=== PATIENT | female | born 1990 | race Caucasian/White ===

== ENCOUNTER 2017-08-12 11:21 | Emergency (ER) | payer OTHER ==
--- NOTE | 2017-08-12 11:46 | ED ---
General Adult HPI - General Chief complaint: Anxiety Stated complaint: Anxiety Time Seen by Provider: 08/12/17 11:31 Source: patient, RN notes reviewed, old records reviewed Mode of arrival: ambulatory Limitations: no limitations - History of Present Illness Initial comments: THis is a 27 female to the ED Co anxiety. Patient has history of anxiety history of PTSD history of psychiatric disease since young age. Patient has had some recent stress of late, including moving to [place], and some illness with her boyfriend. Patient states she has no doctors in town and has been off medication for about a week. Patient denies any other new complaints. States she is having increased anxiety and needs medication for help - Related Data Home Medications Medication Instructions Recorded Confirmed ALPRAZolam [Xanax] 1 mg PO Q6H 08/12/17 08/12/17 Norgestimate-Ethinyl Estradiol 1 tab PO DAILY 08/12/17 08/12/17 [Trinessa Tablet] Sertraline [Zoloft] 50 mg PO BID 08/12/17 08/12/17 Allergies Allergy/AdvReac Type Severity Reaction Status Date / Time fenofibrate Allergy Anaphylaxis Verified 08/12/17 11:35 Review of Systems ROS Statement: Those systems with pertinent positive or pertinent negative responses have been documented in the HPI. ROS Other: All systems not noted in ROS Statement are negative. Past Medical History Additional Past Medical History / Comment(s): kidney stones, ovarian cysts, insulin disorder, crohns History of Any Multi-Drug Resistant Organisms: None Reported Past Surgical History: Cholecystectomy Past Psychological History: Anxiety, Bipolar, PTSD Smoking Status: Current every day smoker Past Alcohol Use History: None Reported Past Drug Use History: Marijuana General Exam Limitations: no limitations General appearance: alert, in no apparent distress Head exam: Present: atraumatic, normocephalic, normal inspection Eye exam: Present: normal appearance, PERRL, EOMI. Absent: scleral icterus, conjunctival injection, periorbital swelling ENT exam: Present: normal exam, mucous membranes moist Neck exam: Present: normal inspection. Absent: tenderness, meningismus, lymphadenopathy Respiratory exam: Present: normal lung sounds bilaterally. Absent: respiratory distress, wheezes, rales, rhonchi, stridor Cardiovascular Exam: Present: regular rate, normal rhythm, normal heart sounds. Absent: systolic murmur, diastolic murmur, rubs, gallop, clicks GI/Abdominal exam: Present: soft, normal bowel sounds. Absent: distended, tenderness, guarding, rebound, rigid Extremities exam: Present: normal inspection, full ROM, normal capillary refill. Absent: tenderness, pedal edema, joint swelling, calf tenderness Back exam: Present: normal inspection Neurological exam: Present: alert, oriented X3, CN II-XII intact Psychiatric exam: Present: normal affect, normal mood Skin exam: Present: warm, dry, intact, normal color. Absent: rash Course Vital Signs 08/12/17 11:24 Temperature 98.9 F Pulse Rate 103 H Respiratory 18 Rate Blood Pressure 171/93 O2 Sat by Pulse 98 Oximetry Medical Decision Making - Medical Decision Making noted here for evaluation. Patient presented today for medication refill , increased anxiety. Patient's is new to [facility] with no psychiatrist in town. Patient states she's been off her medications for about 7 days. No signs or thoughts of harm to herself or others. Patient to get a medication refill and discharged home Disposition Clinical Impression: Acute anxiety Disposition: HOME SELF-CARE Instructions: Generalized Anxiety Disorder (ED) Referrals: Tanesha Pruitt DO [Doctor of Osteopathic Medicine] - 1-2 days Ace Stanford DO [Doctor of Osteopathic Medicine] - 1-2 days
[2017-08-12 11:57] VITALS: BP 137/89; PULSE 96; RESP 16; TEMP 97.7
== END 2017-08-12 11:57 | disposition home or self-care (01) ==
LOC: EC 11:21
DX: F41.9 Anxiety disorder, unspecified (principal); F31.9 Bipolar disorder, unspecified; F43.10 Post-traumatic stress disorder, unspecified; F17.200 Nicotine dependence, unspecified, uncomplicated; Z79.899 Other long term (current) drug therapy; Z79.3 Long term (current) use of hormonal contraceptives; Z88.8 Allergy status to other drugs, medicaments and biological substances
CPT/HCPCS: 99283

== ENCOUNTER 2017-11-30 09:35 | Emergency (ER) | payer OTHER ==
[2017-11-30] MEDS ORDERED: ACETAMINOPHEN TAB 500 MG TAB PO STA (09:55)
--- NOTE | 2017-11-30 10:03 | ED ---
Recheck HPI - General Chief Complaint: Recheck/Abnormal Lab/Rx Stated Complaint: not feeling well Time Seen by Provider: 11/30/17 09:43 Source: patient, RN notes reviewed, old records reviewed Mode of arrival: ambulatory Limitations: no limitations - History of Present Illness Initial Comments: This patient is a 27 rolled female presents emergency department today chief complaint of fever, body aches, and unable to get her daily dose of methadone for the past 2 days due to her illness. She reports that she also confirmed an early and had 2 positive test yesterday. Patient states that she was told to come to emergency department for her dose of methadone and should the clinic is now closed. She reports that she has not had any recent Motrin or Tylenol. She reports she's had a sore throat and congestion. She denies any specific lower abdominal pain or cramping. Denies any bleeding. - Related Data Home Medications Medication Instructions Recorded Confirmed ALPRAZolam [Xanax] 0.5 mg PO TID 11/30/17 11/30/17 Methadone (Unknown Dose) 1 dose PO DIRECTED 11/30/17 11/30/17 Ondansetron [Zofran ODT] 4 mg PO Q8HR PRN 11/30/17 11/30/17 Previous Rx's Medication Instructions Recorded Amoxicillin 500 mg PO BID #20 capsule 11/30/17 Ywp-Eoks-Hdqby Acid 1 cap PO DAILY #30 cap 11/30/17 [-U Capsule (formulary)] Allergies Allergy/AdvReac Type Severity Reaction Status Date / Time fenofibrate Allergy Anaphylaxis Verified 11/30/17 11:47 Review of Systems ROS Statement: Those systems with pertinent positive or pertinent negative responses have been documented in the HPI. ROS Other: All systems not noted in ROS Statement are negative. Past Medical History Additional Past Medical History / Comment(s): kidney stones, ovarian cysts, insulin disorder, crohns History of Any Multi-Drug Resistant Organisms: None Reported Past Surgical History: Cholecystectomy Past Psychological History: Anxiety, Bipolar, PTSD Smoking Status: Current every day smoker Past Alcohol Use History: None Reported Past Drug Use History: Marijuana General Exam - General Exam Comments Initial Comments: This patient is a 27-year-old female. No distress. Limitations: no limitations General appearance: alert, in no apparent distress Head exam: Present: atraumatic, normocephalic, normal inspection Eye exam: Present: normal appearance, PERRL, EOMI. Absent: scleral icterus, conjunctival injection, periorbital swelling ENT exam: Present: normal exam, mucous membranes moist. Absent: normal oropharynx (Erythematous oropharynx.) Neck exam: Present: normal inspection. Absent: tenderness, meningismus, lymphadenopathy Respiratory exam: Present: normal lung sounds bilaterally. Absent: respiratory distress, wheezes, rales, rhonchi, stridor Cardiovascular Exam: Present: regular rate, normal rhythm, normal heart sounds. Absent: systolic murmur, diastolic murmur, rubs, gallop, clicks GI/Abdominal exam: Present: soft, normal bowel sounds. Absent: distended, tenderness, guarding, rebound, rigid Neurological exam: Present: alert, oriented X3, CN II-XII intact Psychiatric exam: Present: normal affect, normal mood Skin exam: Present: warm, dry, intact, normal color. Absent: rash Course Vital Signs 11/30/17 11/30/17 11/30/17 09:38 11:16 11:55 Temperature 101.1 F H 97.8 F 97.1 F L Pulse Rate 95 77 79 Respiratory 18 20 18 Rate Blood Pressure 131/63 114/68 121/58 O2 Sat by Pulse 100 99 97 Oximetry Medical Decision Making - Medical Decision Making This patient is a 27 rolled female presents emergency department today chief complaint of fever, body aches, and unable to get her daily dose of methadone for the past 2 days due to her illness. She reports that she also confirmed an early and had 2 positive test yesterday. Patient arrives febrile the temperature of 101. Given Tylenol. On the testing was negative. She does have an erythematous oropharynx. Some lymphadenopathy noted. She did have a positive test and Saren hCG obtained. Patient was informed she cannot to get a dose of methadone in the emergency department. I just got she should follow up with the clinic on Saturday.All questions were answered in return parameter were discussed. Patient will be started on amoxicillin for likely strep pharyngitis. - Lab Data Lab Results 11/30/17 11/30/17 11/30/17 Range/Units 09:55 09:55 09:55 HCG, Quant mIU/mL Urine Color Yellow Urine Appearance Cloudy H (Clear) Urine pH 5.5 (5.0-8.0) Ur Specific [place] 1.017 (1.001-1.035) Urine Protein Trace H (Negative) Urine Glucose (UA) Negative (Negative) Urine Ketones Negative (Negative) Urine Blood Negative (Negative) Urine Nitrite Negative (Negative) Urine Bilirubin Negative (Negative) Urine Urobilinogen <2.0 (<2.0) mg/dL Ur Leukocyte Esterase Moderate H (Negative) Urine RBC 2 (0-5) /hpf Urine WBC 6 H (0-5) /hpf Ur Squamous Epith Cells 11 H (0-4) /hpf Urine Bacteria Rare H (None) /hpf Urine Mucus Moderate H (None) /hpf Urine HCG, Qual Detected (Not Detectd) Influenza Type A RNA Not Detected (Not Detectd) Influenza Type B (PCR) Not Detected (Not Detectd) 11/30/17 Range/Units 10:10 HCG, Quant 5083.3 mIU/mL Urine Color Urine Appearance (Clear) Urine pH (5.0-8.0) Ur Specific [place] (1.001-1.035) Urine Protein (Negative) Urine Glucose (UA) (Negative) Urine Ketones (Negative) Urine Blood (Negative) Urine Nitrite (Negative) Urine Bilirubin (Negative) Urine Urobilinogen (<2.0) mg/dL Ur Leukocyte Esterase (Negative) Urine RBC (0-5) /hpf Urine WBC (0-5) /hpf Ur Squamous Epith Cells (0-4) /hpf Urine Bacteria (None) /hpf Urine Mucus (None) /hpf Urine HCG, Qual (Not Detectd) Influenza Type A RNA (Not Detectd) Influenza Type B (PCR) (Not Detectd) Disposition Clinical Impression: URI (upper respiratory infection), , Methadone dependence Disposition: HOME SELF-CARE Condition: Good Instructions: (ED), Upper Respiratory Infection (ED) Additional Instructions: Patient has a follow-up with primary care physician. Return to the emergency department if any alarming signs or symptoms occur. Prescriptions: Amoxicillin 500 mg PO BID #20 capsule Bvf-Bmoz-Rnmfq Acid [-U Capsule (formulary)] 1 cap PO DAILY # 30 cap Referrals: Hai Horta DO [Primary Care Provider] - 1-2 days Birdie Ray DO [Doctor of Osteopathic Medicine] - 1-2 days Time of Disposition: 11:46
[2017-11-30 10:32] LABS: Appearance,Urine Cloudy (Clear); Bacteria,Urine Rare /hpf; Bilirubin,Urine Negative (Negative); Blood,Urine Negative (Negative); Color,Urine Yellow; Glucose,Urine (UA) Negative (Negative); Ketones,Urine Negative (Negative); Leukocyte Esterase,Urine Moderate (Negative); Mucus,Urine Moderate /hpf; Nitrite,Urine Negative (Negative); PH, Urine 5.5 (5.0-8.0); Protein,Urine Trace (Negative); RBC,Urine 2 /hpf (0-5); Specific Gravity,Urine 1.017 (1.001-1.035); Squamous Epithelial Cell,Urine 11 /hpf (0-4); Urobilinogen,Urine <2.0 mg/dL (<2.0); WBC,Urine 6 /hpf (0-5)
[2017-11-30 11:57] VITALS: BP 121/58; PULSE 79; RESP 18; TEMP 97.1
== END 2017-11-30 11:56 | disposition home or self-care (01) ==
LOC: EC 09:35
DX: O99.519 Diseases of the respiratory system complicating pregnancy, unspecified trimester (principal); J06.9 Acute upper respiratory infection, unspecified; O99.320 Drug use complicating pregnancy, unspecified trimester; F11.20 Opioid dependence, uncomplicated; O99.330 Smoking (tobacco) complicating pregnancy, unspecified trimester; F17.200 Nicotine dependence, unspecified, uncomplicated; Z79.3 Long term (current) use of hormonal contraceptives; Z88.8 Allergy status to other drugs, medicaments and biological substances; Z3A.00 Weeks of gestation of pregnancy not specified
CPT/HCPCS: 36415; 81001; 81025; 84702; 87502; 99284

== ENCOUNTER 2018-03-11 13:31 | Emergency (ER) | payer OTHER ==
[2018-03-11 14:09] LABS: Basophils # (A) 0.1 k/uL (0-0.2); Basophils % (A) 1 %; Eosinophils # (A) 0.4 k/uL (0-0.7); Eosinophils % (A) 4 %; HCT 38.1 % (34.0-46.0); HGB 13.1 gm/dL (11.4-16.0); Lymphocytes # (A) 3.1 k/uL (1.0-4.8); Lymphocytes % (A) 29 %; MCH 30.2 pg (25.0-35.0); MCHC 34.3 g/dL (31.0-37.0); MCV 88.1 fL (80.0-100.0); Mean Platelet Volume 7.3; Monocytes # (A) 0.4 k/uL (0-1.0); Monocytes % (A) 4 %; Neutrophils # (A) 6.3 k/uL (1.3-7.7); Neutrophils % (A) 60 %; Platelet Count 218 k/uL (150-450); RBC 4.32 m/uL (3.80-5.40); WBC 10.5 k/uL (3.8-10.6)
[2018-03-11 14:16] LABS: Anion Gap 11 mmol/L; Blood Urea Nitrogen 8 mg/dL (7-17); Calcium 9.1 mg/dL (8.4-10.2); Carbon Dioxide 25 mmol/L (22-30); Chloride 104 mmol/L (98-107); Glucose 91 mg/dL (74-99); Potassium 3.9 mmol/L (3.5-5.1); Sodium 140 mmol/L (137-145)
--- NOTE | 2018-03-11 14:27 | ED ---
Female Urogenital HPI - General Chief complaint: Vaginal Bleeding Stated complaint: 19 wks preg/bleeding Time Seen by Provider: 03/11/18 13:43 Source: patient Mode of arrival: wheelchair Limitations: no limitations - History of Present Illness Initial comments: Patient is a 27-year-old female, who presents with a chief complaint of vaginal bleeding at 19 weeks . The patient states that while at home she felt a mass in her vagina and when she touched that she had a release of fluid. Patient states that she is now having vaginal bleeding. Patient denies any pain at this time. The patient cannot identify an inciting incident. There are no aggravating or alleviating factors. Patient is crying and in moderate distress in exam room. Patient states that her last was an elective . No other pertinent OB history. - Related Data Home Medications Medication Instructions Recorded Confirmed Methadone (Unknown Dose) 1 dose PO DIRECTED 11/30/17 11/30/17 ALPRAZolam [Xanax] 0.5 - 1 mg PO TID PRN 03/11/18 03/11/18 Lac-Hydrin 12% (Unknown) 1 applic TOPICAL BID 03/11/18 03/11/18 Mylanta Maxium Strength 10 ml PO QID PRN 03/11/18 03/11/18 Promethazine HCl 12.5 mg PO Q4H PRN 03/11/18 03/11/18 Previous Rx's Medication Instructions Recorded Oyr-Wgsa-Ourep Acid 1 cap PO DAILY #30 cap 11/30/17 [-U Capsule (formulary)] Allergies Allergy/AdvReac Type Severity Reaction Status Date / Time fenofibrate Allergy Anaphylaxis Verified 03/11/18 13:47 Review of Systems ROS Statement: Those systems with pertinent positive or pertinent negative responses have been documented in the HPI. ROS Other: All systems not noted in ROS Statement are negative. Genitourinary: Reports: other (Vaginal bleeding) Past Medical History Additional Past Medical History / Comment(s): kidney stones, ovarian cysts, insulin disorder, crohns History of Any Multi-Drug Resistant Organisms: None Reported Past Surgical History: Cholecystectomy Additional Past Surgical History / Comment(s): abotion Past Psychological History: Anxiety, Bipolar, PTSD Smoking Status: Current every day smoker Past Alcohol Use History: None Reported Past Drug Use History: Marijuana General Exam Limitations: no limitations General appearance: alert, in distress Head exam: Present: atraumatic, normocephalic Eye exam: Present: normal appearance ENT exam: Present: mucous membranes moist Neck exam: Present: normal inspection Respiratory exam: Present: normal lung sounds bilaterally. Absent: respiratory distress, wheezes Cardiovascular Exam: Present: normal rhythm, tachycardia GI/Abdominal exam: Present: soft. Absent: distended, tenderness Rectal exam: Present: deferred External exam: Present: normal external exam Speculum exam: Present: cervical discharge, vaginal bleeding, tissue (tissue within the vagina extending into the cervix. tissue appears vascularized and is concerning for tissue. ). Absent: vaginal discharge Extremities exam: Present: normal inspection Back exam: Present: normal inspection Neurological exam: Present: alert, oriented X3 Psychiatric exam: Present: anxious Skin exam: Present: warm, dry, intact Course Vital Signs 03/11/18 03/11/18 13:31 14:00 Temperature 99.0 F Pulse Rate 103 H 85 Respiratory 22 16 Rate Blood Pressure 149/96 113/64 O2 Sat by Pulse 98 99 Oximetry Medical Decision Making - Medical Decision Making Patient is a 27-year-old female presents with the chief complaint of vaginal bleeding and passage of tissue. On initial evaluation, vital signs are stable the patient is in distress secondary to fear of losing her . Bedside ultrasound shows an intrauterine fetus with a bedside heart rate of 140 bpm. Patient currently having formal ultrasound performed. Pelvic exam shows blood and tissue in the vaginal vault extending to the cervix, tissue concerning for tissue. 3:36 PM Lab evaluation is unremarkable. Patient is Rho (-) and was given 300 micrograms of RhoGam. This case was discussed with Dr. Patten of [facility] who recommends transfer to the OB floor. Dr. Patten states she will write further management orders for the patient. the patient was updated on the care plan and her results. formal US shows a single intrauterine, viable dated at 18 weeks and 6 days. oligohydramnios noted, consistent with patients history. at this time, patient agreeable with care plan. Patient discharge from the ED to [facility]. - Lab Data Result diagrams: 03/11/18 13:47 03/11/18 13:47 Lab Results 03/11/18 03/11/18 03/11/18 Range/Units 13:47 13:47 13:47 WBC 10.5 (3.8-10.6) k/uL RBC 4.32 (3.80-5.40) m/uL Hgb 13.1 (11.4-16.0) gm/dL Hct 38.1 (34.0-46.0) % MCV 88.1 (80.0-100.0) fL MCH 30.2 (25.0-35.0) pg MCHC 34.3 (31.0-37.0) g/dL RDW 13.0 (11.5-15.5) % Plt Count 218 (150-450) k/uL Neutrophils % 60 % Lymphocytes % 29 % Monocytes % 4 % Eosinophils % 4 % Basophils % 1 % Neutrophils # 6.3 (1.3-7.7) k/uL Lymphocytes # 3.1 (1.0-4.8) k/uL Monocytes # 0.4 (0-1.0) k/uL Eosinophils # 0.4 (0-0.7) k/uL Basophils # 0.1 (0-0.2) k/uL Sodium 140 (137-145) mmol/L Potassium 3.9 (3.5-5.1) mmol/L Chloride 104 (98-107) mmol/L Carbon Dioxide 25 (22-30) mmol/L Anion Gap 11 mmol/L BUN 8 (7-17) mg/dL Creatinine 0.50 L (0.52-1.04) mg/dL Est GFR (CKD-EPI)AfAm >90 (>60 ml/min/1.73 sqM) Est GFR (CKD-EPI)NonAf >90 (>60 ml/min/1.73 sqM) Glucose 91 (74-99) mg/dL Calcium 9.1 (8.4-10.2) mg/dL Urine Color Urine Appearance (Clear) Urine pH (5.0-8.0) Ur Specific [place] (1.001-1.035) Urine Protein (Negative) Urine Glucose (UA) (Negative) Urine Ketones (Negative) Urine Blood (Negative) Urine Nitrite (Negative) Urine Bilirubin (Negative) Urine Urobilinogen (<2.0) mg/dL Ur Leukocyte Esterase (Negative) Urine RBC (0-5) /hpf Urine WBC (0-5) /hpf Ur Squamous Epith Cells (0-4) /hpf Amorphous Sediment (None) /hpf Urine Bacteria (None) /hpf Urine Mucus (None) /hpf Blood Type O Negative Blood Type Recheck No Antibody Screen NEGATIVE Spec Expiration Date 03/14/2018234603/11/18 Range/Units 15:05 WBC (3.8-10.6) k/uL RBC (3.80-5.40) m/uL Hgb (11.4-16.0) gm/dL Hct (34.0-46.0) % MCV (80.0-100.0) fL MCH (25.0-35.0) pg MCHC (31.0-37.0) g/dL RDW (11.5-15.5) % Plt Count (150-450) k/uL Neutrophils % % Lymphocytes % % Monocytes % % Eosinophils % % Basophils % % Neutrophils # (1.3-7.7) k/uL Lymphocytes # (1.0-4.8) k/uL Monocytes # (0-1.0) k/uL Eosinophils # (0-0.7) k/uL Basophils # (0-0.2) k/uL Sodium (137-145) mmol/L Potassium (3.5-5.1) mmol/L Chloride (98-107) mmol/L Carbon Dioxide (22-30) mmol/L Anion Gap mmol/L BUN (7-17) mg/dL Creatinine (0.52-1.04) mg/dL Est GFR (CKD-EPI)AfAm (>60 ml/min/1.73 sqM) Est GFR (CKD-EPI)NonAf (>60 ml/min/1.73 sqM) Glucose (74-99) mg/dL Calcium (8.4-10.2) mg/dL Urine Color Yellow Urine Appearance Cloudy H (Clear) Urine pH 7.5 (5.0-8.0) Ur Specific [place] 1.019 (1.001-1.035) Urine Protein Trace H (Negative) Urine Glucose (UA) Negative (Negative) Urine Ketones Negative (Negative) Urine Blood Large H (Negative) Urine Nitrite Negative (Negative) Urine Bilirubin Negative (Negative) Urine Urobilinogen <2.0 (<2.0) mg/dL Ur Leukocyte Esterase Moderate H (Negative) Urine RBC >182 H (0-5) /hpf Urine WBC 22 H (0-5) /hpf Ur Squamous Epith Cells 2 (0-4) /hpf Amorphous Sediment Rare H (None) /hpf Urine Bacteria Few H (None) /hpf Urine Mucus Rare H (None) /hpf Blood Type Blood Type Recheck Antibody Screen Spec Expiration Date Disposition Clinical Impression: Oligohydramnios, PROM (premature rupture of membranes) Disposition: HOME SELF-CARE Condition: Good Instructions: Threatened Miscarriage (ED) Is patient prescribed a controlled substance at d/c from ED?: No Referrals: Hai Horta DO [Primary Care Provider] - 1-2 days
--- NOTE | 2018-03-11 14:45 | US ---
EXAMINATION TYPE: US OB >= 14 wk fetus DATE OF EXAM: 03/11/2018 COMPARISON: None CLINICAL HISTORY: Pain Patient states she felt a bulge then a pop with leaky clear fluid. No pain o r cramping. Patient states passing a tissue. TECHNIQUE: Transvaginal (TV) GESTATIONAL AGE / DATING Physician Established: (19 weeks/3 days) EDC: 08/02/2018 Dates by Current Scan: (18 weeks/6 days) EDC: 08/06/2018 SURVEY IUP: Single PLACENTA: Anterior PREVIA: No Previa HADLEY: 1.9 cm Oligohydramnios CERVICAL LENGTH (transabdominal: norm > 3.0cm): 3.7 cm BIOMETRY PRESENTATION: Breech LIE: Longitudinal BPD: 4.1 cm 18 weeks / 2 days HC: 16.3 cm 19 weeks / 0 days AC: 13.6 cm 19 weeks / 0 days FL: 3.1 cm 19 weeks / 4 days ESTIMATED WEIGHT IN GRAMS: 283.0 grams ESTIMATED WEIGHT IN LBS/OZ: 0 lbs. 10 oz. WEIGHT PERCENTAGE BASED ON ESTABLISHED DATES: 36.0% HC/AC: 1.2 Normal FL/AC: 22.8 HEART RATE: 137 bpm RHYTHM: Normal Single live IUP measuring 18 weeks 6 days. Oligohydramnios. IMPRESSION: Single viable intrauterine patency corresponding to ultrasound age 18 weeks 6 days with estimated lizzy e of delivery 08/06/2018. Oligohydramnios. Limited survey.
[2018-03-11] MEDS ORDERED: Rhogam IMMUNE GLOBULIN 1,500 UNIT/1 ML IM ONE (15:17)
[2018-03-11 15:32] LABS: Amorphous Sediment,Urine Rare /hpf; Appearance,Urine Cloudy (Clear); Bacteria,Urine Few /hpf; Bilirubin,Urine Negative (Negative); Blood,Urine Large (Negative); Color,Urine Yellow; Glucose,Urine (UA) Negative (Negative); Ketones,Urine Negative (Negative); Leukocyte Esterase,Urine Moderate (Negative); Mucus,Urine Rare /hpf; Nitrite,Urine Negative (Negative); PH, Urine 7.5 (5.0-8.0); Protein,Urine Trace (Negative); RBC,Urine >182 /hpf (0-5); Specific Gravity,Urine 1.019 (1.001-1.035); Squamous Epithelial Cell,Urine 2 /hpf (0-4); Urobilinogen,Urine <2.0 mg/dL (<2.0); WBC,Urine 22 /hpf (0-5)
[2018-03-11 15:39] LABS: Amphetamine Screen,Urine Not Detected (NotDetected); Barbiturate Screen,Urine Not Detected (NotDetected); Benzodiazepines Screen,Urine Detected (NotDetected); Cocaine Screen,Urine Not Detected (NotDetected); Methadone Screen, Urine Detected (NotDetected); Opiate Screen,Urine Not Detected (NotDetected); Oxycodone Screen, Urine Not Detected (NotDetected); Phencyclidine Screen,Urine Not Detected (NotDetected); Tricyclic Antidepressant,Urine Not Detected (NotDetected); Urn Cannabinoid Scrn Detected (NotDetected)
[2018-03-11 15:45] VITALS: RESP 18
[2018-03-11 16:28] VITALS: BP 105/55; PULSE 74; TEMP 98.2
== END 2018-03-11 16:27 | disposition home or self-care (01) ==
LOC: EC 13:31
DX: O42.912 Preterm premature rupture of membranes, unspecified as to length of time between rupture and onset of labor, second trimester (principal); O99.332 Smoking (tobacco) complicating pregnancy, second trimester; F17.200 Nicotine dependence, unspecified, uncomplicated; Z79.891 Long term (current) use of opiate analgesic; Z79.899 Other long term (current) drug therapy; Z88.8 Allergy status to other drugs, medicaments and biological substances; Z3A.19 19 weeks gestation of pregnancy
CPT/HCPCS: 99284; 96372; 36415; 86900; 86901; 88305; 80048; 85025; 86850; 81001; 80306; 76805; J2791

== ENCOUNTER 2018-03-11 16:30 | Inpatient (IN) | payer OTHER ==
--- NOTE | 2018-03-11 17:55 | US ---
EXAMINATION TYPE: US OB limited DATE OF EXAM: 03/11/2018 COMPARISON: US 3 hours prior CLINICAL HISTORY: heart tones ruptured membranes 19 weeks. Access for heart tones EXAM PERFORMED: Transabdominal (TA) SURVEY HEART RATE: 112 bpm RHYTHM: Normal IMPRESSION: As above, single image saved shows documented persistent live fetus with impending abort ion suspected as no surrounding fluid is seen which correlates with history of premature rupture of m embranes.
--- NOTE | 2018-03-11 17:57 | P.HPOB ---
History of Present Illness H&P Date: 03/11/18 Chief Complaint: IUP at 19 weeks, PPROM This is a 27yo at 19 weeks gestation. she was receiving care from Dr. Martinez at [facility]. she is a known methadone user, and admits to marijuana use , in addition she takes xanax tid. she states today she felt something vaginally and noted a bulge "like a balloon" and then a gush of fluid. she notes some low back pain. she is with her mom and states the FOB is in rehab for alcohol abuse. only scant VB noted. Review of Systems Constitutional: Denies chills, Denies fatigue, Denies fever Ears, nose, mouth and throat: Denies headache Cardiovascular: Denies edema Respiratory: Denies cough, Denies dyspnea Gastrointestinal: Denies constipation, Denies diarrhea Genitourinary: Reports as per HPI, Reports Psychiatric: Reports anxiety, Reports depression Past Medical History Additional Past Medical History / Comment(s): kidney stones, ovarian cysts, insulin disorder, crohns History of Any Multi-Drug Resistant Organisms: None Reported Past Surgical History: Cholecystectomy Additional Past Surgical History / Comment(s): abotion Past Psychological History: Anxiety, Bipolar, PTSD Smoking Status: Current every day smoker Past Alcohol Use History: None Reported Past Drug Use History: Heroin, Marijuana, Prescription Drug Abuse Medications and Allergies Home Medications Medication Instructions Recorded Confirmed Type Methadone (Unknown Dose) 1 dose PO DIRECTED 11/30/17 11/30/17 History Zkf-Bewn-Diysd Acid 1 cap PO DAILY #30 cap 11/30/17 Rx [-U Capsule (formulary)] ALPRAZolam [Xanax] 0.5 - 1 mg PO TID PRN 03/11/18 03/11/18 History Lac-Hydrin 12% (Unknown) 1 applic TOPICAL BID 03/11/18 03/11/18 History Mylanta Maxium Strength 10 ml PO QID PRN 03/11/18 03/11/18 History Promethazine HCl 12.5 mg PO Q4H PRN 03/11/18 03/11/18 History Allergies Allergy/AdvReac Type Severity Reaction Status Date / Time fenofibrate Allergy Anaphylaxis Verified 03/11/18 13:47 Exam Osteopathic Statement: *. No significant issues noted on an osteopathic structural exam other than those noted in the History and Physical/Consult. - Vital Signs Vital signs: Intake and Output 03/11/18 03/11/18 03/11/18 06:59 14:59 22:59 Other: Weight 104.78 kg - OBG Physical Exam Abdomen: soft Abdomen: bowel sounds normal Cervix: defer Assessment and Plan (1) Methadone use Current Visit: Yes Status: Acute Code(s): F11.20 - OPIOID DEPENDENCE, UNCOMPLICATED SNOMED Code(s): 286951480 (2) Marijuana use Current Visit: Yes Status: Acute Code(s): F12.90 - CANNABIS USE, UNSPECIFIED , UNCOMPLICATED SNOMED Code(s): 704504798 (3) Oligohydramnios Current Visit: No Status: Acute Code(s): O41.00X0 - OLIGOHYDRAMNIOS, UNSP TRIMESTER, NOT APPLICABLE OR UNSP SNOMED Code(s): 66035497 (4) PROM (premature rupture of membranes) Current Visit: No Status: Acute Code(s): O42.90 - CLAUDINE ROM, 7TH0 BETW RUPT & ONST LABR, UNSP WEEKS OF GEST SNOMED Code(s): 05102515 Plan: FHTs done by bedside us and 112. will start IVF and IV antibx, (kefzol). will monitor overnight and recheck US for FHTs in the am. plan reviewed with patient, dire situation discussed and pt is tearful but understands. recheck cbc in the am Time with Patient: Greater than 30
[2018-03-11] MEDS ORDERED: ceFAZolin IN SWFI 2 GM/20 ML SYRINGE IVP ONE (18:15)
[2018-03-11] MEDS: LACTATED RINGERS 1,000 ML IV SCH (18:54)
[2018-03-11] MEDS: ALPRAZolam 0.5 MG TAB PO PRN (21:12)
[2018-03-11 23:07] VITALS: RESP 18; BMI 36.8
[2018-03-12] MEDS: LACTATED RINGERS 1,000 ML IV SCH ×3 (01:32→20:50)
[2018-03-12] MEDS: ceFAZolin 1,000 MG in DEXTROSE/WATER 1 50ML.BAG IVPB SCH ×3 (01:33→18:03)
[2018-03-12] MEDS: ACETAMINOPHEN TAB 500 MG TAB PO PRN ×3 (01:54→14:29)
[2018-03-12] MEDS: ALPRAZolam 0.5 MG TAB PO PRN ×3 (04:59→21:02)
[2018-03-12 06:46] LABS: Basophils # (A) 0.1 k/uL (0-0.2); Basophils % (A) 0 %; Eosinophils # (A) 0.3 k/uL (0-0.7); Eosinophils % (A) 2 %; HCT 36.1 % (34.0-46.0); HGB 12.3 gm/dL (11.4-16.0); Lymphocytes # (A) 2.4 k/uL (1.0-4.8); Lymphocytes % (A) 16 %; MCH 30.5 pg (25.0-35.0); MCHC 33.9 g/dL (31.0-37.0); MCV 89.8 fL (80.0-100.0); Mean Platelet Volume 7.1; Monocytes # (A) 0.8 k/uL (0-1.0); Monocytes % (A) 5 %; Neutrophils % (A) 75 %; Platelet Count 217 k/uL (150-450); RBC 4.02 m/uL (3.80-5.40); RDW 13.3 % (11.5-15.5); WBC 14.7 k/uL (3.8-10.6)
--- NOTE | 2018-03-12 08:01 | US ---
EXAMINATION TYPE: US OB limited DATE OF EXAM: 03/12/2018 COMPARISON: 03/11/2018 CLINICAL HISTORY: 27-year-old female assess heart tones. The patient has known rupture of fluid s at 18 wk, this scan is to check rate only per ordering physician EXAM PERFORMED: Transabdominal (TA) Findings: HEART RATE: 153 bpm RHYTHM: Normal IMPRESSION: Single live intrauterine . Exam performed only for cardiac activity; heart rate 153 BP M.
[2018-03-12] MEDS: METHADONE 10 MG TAB PO SCH (08:37)
--- NOTE | 2018-03-12 08:49 | P.PNOBGAP ---
Subjective - Subjective Principal diagnosis: PPROM 19 weeks, metadone use Interval history: Pt has done well overnight, no f/c she is tolerating a regular diet, no n/v. US is done this am for FHTs in addition. she states she is feeling well and denies any further leaking of fluid or VB Antepartum ROS: Denies loss of fluid, Denies vaginal bleeding, Denies contractions Objective - Vital Signs Vital Signs: Vital Signs Temp Pulse Resp BP 03/11/18 17:43 98.4 F 80 18 113/62 Intake and Output 03/11/18 03/12/18 03/12/18 22:59 06:59 14:59 Output Total 200 Balance -200 Output: Urine 200 Other: # Voids 4 Weight 100.344 kg - Exam FHR: other (152 by US) Abdomen: Present: soft Uterus: Present: normal Cervical dilation: defer given no ctx or further leakage of fluid - Labs Labs: Abnormal Labs 03/12/18 06:23 WBC 14.7 H Neutrophils # 11.0 H Assessment and Plan (1) Methadone use Current Visit: Yes Status: Acute Code(s): F11.20 - OPIOID DEPENDENCE, UNCOMPLICATED SNOMED Code(s): 606077207 (2) Marijuana use Current Visit: Yes Status: Acute Code(s): F12.90 - CANNABIS USE, UNSPECIFIED , UNCOMPLICATED SNOMED Code(s): 352086308 (3) Oligohydramnios Current Visit: No Status: Acute Code(s): O41.00X0 - OLIGOHYDRAMNIOS, UNSP TRIMESTER, NOT APPLICABLE OR UNSP SNOMED Code(s): 69049145 (4) PROM (premature rupture of membranes) Current Visit: No Status: Acute Code(s): O42.90 - CLAUDINE ROM, 7TH0 BETW RUPT & ONST LABR, UNSP WEEKS OF GEST SNOMED Code(s): 59828339 Plan: will plan to continue IV antibiotics for 24 hours, most likely she can be discharged on oral antibiotics and bedrest to follow up with her primary OBGYN Dr Martinez at [facility]. will continue to monitor closely today and reassess d/ c possibility today. Pt is hopeful this am and in good spirits, her methadone is ordered for her in addition.
[2018-03-12] MEDS: PRENATAL VIT-IRON-FOLIC ACID 1 EACH CAP PO SCH (13:09)
[2018-03-13] MEDS: ceFAZolin 1,000 MG in DEXTROSE/WATER 1 50ML.BAG IVPB SCH ×2 (02:06→10:00)
[2018-03-13] MEDS: ALPRAZolam 0.5 MG TAB PO PRN (04:58)
[2018-03-13] MEDS: LACTATED RINGERS 1,000 ML IV SCH ×2 (07:44→14:54)
[2018-03-13] MEDS: ACETAMINOPHEN TAB 500 MG TAB PO PRN (07:59)
[2018-03-13] MEDS: METHADONE 10 MG TAB PO SCH (08:00)
--- NOTE | 2018-03-13 08:36 | P.DS ---
Providers Date of admission: 03/11/18 17:22 Expected date of discharge: 03/13/18 Attending physician: Lorraine Patten Primary care physician: Stated None - Discharge Diagnosis(es) (1) Methadone use Current Visit: Yes Status: Acute (2) Marijuana use Current Visit: Yes Status: Acute (3) Oligohydramnios Current Visit: No Status: Acute (4) PROM (premature rupture of membranes) Current Visit: No Status: Acute Hospital Course: This is a 27-year-old 2 para 0010 at approx. 19 weeks gestation that presented to labor and delivery with complaints of rupture of membranes. Ultrasound was done and confirmed oligohydramnios. She had been receiving care at [facility] with Dr. Martinez. Patient has had minimal leakage sent being admitted to the hospital has received IV antibiotics over the course of her admission. Patient is a febrile without complaints this morning. She is able to inflate to the bathroom and void without difficulty. The guarded nature of her situation is discussed and she is tearful but understands. She has multiple social issues that will play into her care. No records available Patient Condition at Discharge: Good Plan - Discharge Summary New Discharge Prescriptions: No Action Qxn-Omat-Ijchu Acid [-U Capsule (formulary)] 1 cap PO DAILY #30 cap Methadone (Unknown Dose) 210 mg PO DAILY ALPRAZolam [Xanax] 0.5 - 1 mg PO TID PRN PRN Reason: Anxiety Discharge Medication List Methadone (Unknown Dose) 210 mg PO DAILY 11/30/17 [History] Nxl-Nqgg-Xmaop Acid [-U Capsule (formulary)] 1 cap PO DAILY # 30 cap 11/30/17 [Rx] ALPRAZolam [Xanax] 0.5 - 1 mg PO TID PRN 03/11/18 [History] Activity/Diet/Wound Care/Special Instructions: Patient is to be discharged home on oral antibiotics. She is to maintain bedrest with bathroom privileges. She is advised pelvic rest until further notice. She is to follow-up with Dr. Martinez on Saturday as scheduled for ultrasound Discharge Disposition: HOME SELF-CARE
[2018-03-13 13:13] VITALS: BP 109/55; PULSE 76; TEMP 96.7
[2018-03-13] MEDS: PRENATAL VIT-IRON-FOLIC ACID 1 EACH CAP PO SCH (14:53)
== END 2018-03-13 12:10 | disposition home or self-care (01) | DRG 775 ==
LOC: FBPOP 16:30 → 4FBP 17:22
PROVIDERS: ADMIT Obstetrics & Gynecology Obstetrics; ATTEND Obstetrics & Gynecology Obstetrics
DX: O42.912 Preterm premature rupture of membranes, unspecified as to length of time between rupture and onset of labor, second trimester (principal); O99.324 Drug use complicating childbirth; O41.02X0 Oligohydramnios, second trimester, not applicable or unspecified; K50.90 Crohn's disease, unspecified, without complications; O99.332 Smoking (tobacco) complicating pregnancy, second trimester; O99.612 Diseases of the digestive system complicating pregnancy, second trimester; O99.342 Other mental disorders complicating pregnancy, second trimester; F11.90 Opioid use, unspecified, uncomplicated; F12.90 Cannabis use, unspecified, uncomplicated; F17.200 Nicotine dependence, unspecified, uncomplicated; F43.10 Post-traumatic stress disorder, unspecified; F41.9 Anxiety disorder, unspecified; F31.9 Bipolar disorder, unspecified; Z3A.19 19 weeks gestation of pregnancy; Z87.442 Personal history of urinary calculi; Z87.898 Personal history of other specified conditions; Z90.49 Acquired absence of other specified parts of digestive tract; Z79.899 Other long term (current) drug therapy; Z88.8 Allergy status to other drugs, medicaments and biological substances
CPT/HCPCS: 76815; 85025

== ENCOUNTER 2018-06-01 08:36 | Emergency (ER) | payer OTHER ==
[2018-06-01 09:22] LABS: Basophils % (A) 1 %; Eosinophils # (A) 0.4 k/uL (0-0.7); Eosinophils % (A) 6 %; HCT 44.9 % (34.0-46.0); HGB 14.9 gm/dL (11.4-16.0); Lymphocytes # (A) 1.8 k/uL (1.0-4.8); Lymphocytes % (A) 25 %; MCH 30.1 pg (25.0-35.0); MCHC 33.3 g/dL (31.0-37.0); MCV 90.4 fL (80.0-100.0); Mean Platelet Volume 7.1; Monocytes # (A) 0.4 k/uL (0-1.0); Monocytes % (A) 5 %; Neutrophils # (A) 4.4 k/uL (1.3-7.7); Neutrophils % (A) 61 %; Platelet Count 269 k/uL (150-450); RBC 4.97 m/uL (3.80-5.40); RDW 13.1 % (11.5-15.5); WBC 7.2 k/uL (3.8-10.6)
[2018-06-01 09:26] LABS: Appearance,Urine Cloudy (Clear); Bacteria,Urine Rare /hpf; Bilirubin,Urine Negative (Negative); Blood,Urine Negative (Negative); Color,Urine Yellow; Glucose,Urine (UA) Negative (Negative); Ketones,Urine Negative (Negative); Leukocyte Esterase,Urine Trace (Negative); Mucus,Urine Many /hpf; Nitrite,Urine Negative (Negative); PH, Urine 5.5 (5.0-8.0); Protein,Urine Trace (Negative); RBC,Urine 3 /hpf (0-5); Specific Gravity,Urine 1.022 (1.001-1.035); Squamous Epithelial Cell,Urine 12 /hpf (0-4); Urobilinogen,Urine <2.0 mg/dL (<2.0); WBC,Urine 1 /hpf (0-5)
[2018-06-01 09:28] LABS: ALT 41 U/L (9-52); AST 27 U/L (14-36); Albumin 4.3 g/dL (3.5-5.0); Alkaline Phosphatase 79 U/L (38-126); Amylase 40 U/L (30-110); Anion Gap 9 mmol/L; Blood Urea Nitrogen 8 mg/dL (7-17); Calcium 9.5 mg/dL (8.4-10.2); Carbon Dioxide 26 mmol/L (22-30); Chloride 106 mmol/L (98-107); Glucose 97 mg/dL (74-99); Lipase 26 U/L (23-300); Potassium 4.2 mmol/L (3.5-5.1); Sodium 141 mmol/L (137-145); Total Bilirubin 0.3 mg/dL (0.2-1.3); Total Protein 7.4 g/dL (6.3-8.2)
[2018-06-01] MEDS ORDERED: MAG HYDROX/AL HYDROX/SIMETH 30 ML, HYOSCYAMINE ELIXIR 10 ML, CIMETIDINE HCL 300 MG, LID... PO STA ×4 (09:28)
--- NOTE | 2018-06-01 09:36 | ED ---
General Adult HPI - General Chief complaint: Abdominal Pain Stated complaint: Crohns flare Time Seen by Provider: 06/01/18 09:19 Source: patient, RN notes reviewed Mode of arrival: ambulatory Limitations: no limitations - History of Present Illness Initial comments: Patient's a 28-year-old female presented to the emergency room today with chief complaint abdominal pain over the last 5 days. She admits to a history of Crohn 's disease. Patient states that she's had increased diarrhea with some episodes of nausea. Denies any signs of blood. Denies any other complaints or symptoms currently. Patient was here with significant other when she decided that she should be seen. Patient denies any recent fever, chills, shortness of breath, chest pain, back pain, abdominal pain, dysuria or hematuria, constipation or diarrhea, headaches or visual changes, or any other complaints. - Related Data Home Medications Medication Instructions Recorded Confirmed Methadone (Unknown Dose) 210 mg PO DAILY 11/30/17 03/12/18 ALPRAZolam [Xanax] 0.5 - 1 mg PO TID PRN 03/11/18 03/11/18 Previous Rx's Medication Instructions Recorded Ugq-Lfdx-Lzhse Acid 1 cap PO DAILY #30 cap 11/30/17 [-U Capsule (formulary)] predniSONE 0 mg PO DIRECTED #16 tab 06/01/18 Allergies Allergy/AdvReac Type Severity Reaction Status Date / Time fenofibrate Allergy Anaphylaxis Verified 06/01/18 08:53 Review of Systems ROS Statement: Those systems with pertinent positive or pertinent negative responses have been documented in the HPI. ROS Other: All systems not noted in ROS Statement are negative. Past Medical History Additional Past Medical History / Comment(s): kidney stones, ovarian cysts, insulin disorder, crohns, loss@ 19weeks 6days 03/14/18 History of Any Multi-Drug Resistant Organisms: None Reported Past Surgical History: Cholecystectomy, Tonsillectomy Additional Past Surgical History / Comment(s): , ovarian cyst Past Psychological History: Anxiety, Bipolar, PTSD Smoking Status: Current every day smoker Past Alcohol Use History: None Reported Past Drug Use History: Heroin, Marijuana, Prescription Drug Abuse General Exam - General Exam Comments Initial Comments: General: The patient is awake and alert, in no distress, and does not appear acutely ill. Eye: Pupils are equal, round and reactive to light, extra-ocular movements are intact. No nystagmus. There is normal conjunctiva bilaterally. No signs of icterus. Ears, nose, mouth and throat: There are moist mucous membranes and no oral lesions. Neck: The neck is supple, there is no tenderness or JVD. Cardiovascular: There is a regular rate and rhythm. No murmur, rub or gallop is appreciated. Respiratory: Lungs are clear to auscultation, respirations are non-labored, breath sounds are equal. No wheezes, stridor, rales, or rhonchi. Gastrointestinal: Abdomen soft on palpation. Patient does have tenderness epigastric and right upper quadrant. No rebound, guarding or CVA tenderness. Musculoskeletal: Normal ROM, no tenderness. Strength 5/5. Sensation intact. Pulses equal bilaterally 2+. Neurological: A&O x 3. CN II-XII intact, There are no obvious motor or sensory deficits. Coordination appears grossly intact. Speech is normal. Skin: Skin is warm and dry and no rashes or lesions are noted. Psychiatric: Cooperative, appropriate mood & affect, normal judgment. Limitations: no limitations Course Vital Signs 06/01/18 08:50 Temperature 98.8 F Pulse Rate 82 Respiratory 18 Rate Blood Pressure 155/81 O2 Sat by Pulse 98 Oximetry Medical Decision Making - Medical Decision Making Labs been reviewed. X-ray is negative. Results were discussed with the patient. Patient will be given a course of steroids advised follow-up with GI. Advised return for any other concerns. - Lab Data Result diagrams: 06/01/18 09:08 06/01/18 09:08 Lab Results 06/01/18 06/01/18 06/01/18 Range/Units 09:08 09:08 09:08 WBC 7.2 (3.8-10.6) k/uL RBC 4.97 (3.80-5.40) m/uL Hgb 14.9 (11.4-16.0) gm/dL Hct 44.9 (34.0-46.0) % MCV 90.4 (80.0-100.0) fL MCH 30.1 (25.0-35.0) pg MCHC 33.3 (31.0-37.0) g/dL RDW 13.1 (11.5-15.5) % Plt Count 269 (150-450) k/uL Neutrophils % 61 % Lymphocytes % 25 % Monocytes % 5 % Eosinophils % 6 % Basophils % 1 % Neutrophils # 4.4 (1.3-7.7) k/uL Lymphocytes # 1.8 (1.0-4.8) k/uL Monocytes # 0.4 (0-1.0) k/uL Eosinophils # 0.4 (0-0.7) k/uL Basophils # 0.0 (0-0.2) k/uL Sodium 141 (137-145) mmol/L Potassium 4.2 (3.5-5.1) mmol/L Chloride 106 (98-107) mmol/L Carbon Dioxide 26 (22-30) mmol/L Anion Gap 9 mmol/L BUN 8 (7-17) mg/dL Creatinine 0.78 (0.52-1.04) mg/dL Est GFR (CKD-EPI)AfAm >90 (>60 ml/min/1.73 sqM) Est GFR (CKD-EPI)NonAf >90 (>60 ml/min/1.73 sqM) Glucose 97 (74-99) mg/dL Calcium 9.5 (8.4-10.2) mg/dL Total Bilirubin 0.3 (0.2-1.3) mg/dL AST 27 (14-36) U/L ALT 41 (9-52) U/L Alkaline Phosphatase 79 (38-126) U/L Total Protein 7.4 (6.3-8.2) g/dL Albumin 4.3 (3.5-5.0) g/dL Amylase 40 (30-110) U/L Lipase 26 (23-300) U/L Urine Color Yellow Urine Appearance Cloudy H (Clear) Urine pH 5.5 (5.0-8.0) Ur Specific [place] 1.022 (1.001-1.035) Urine Protein Trace H (Negative) Urine Glucose (UA) Negative (Negative) Urine Ketones Negative (Negative) Urine Blood Negative (Negative) Urine Nitrite Negative (Negative) Urine Bilirubin Negative (Negative) Urine Urobilinogen <2.0 (<2.0) mg/dL Ur Leukocyte Esterase Trace H (Negative) Urine RBC 3 (0-5) /hpf Urine WBC 1 (0-5) /hpf Ur Squamous Epith Cells 12 H (0-4) /hpf Urine Bacteria Rare H (None) /hpf Urine Mucus Many H (None) /hpf Urine HCG, Qual (Not Detectd) 06/01/18 Range/Units 09:08 WBC (3.8-10.6) k/uL RBC (3.80-5.40) m/uL Hgb (11.4-16.0) gm/dL Hct (34.0-46.0) % MCV (80.0-100.0) fL MCH (25.0-35.0) pg MCHC (31.0-37.0) g/dL RDW (11.5-15.5) % Plt Count (150-450) k/uL Neutrophils % % Lymphocytes % % Monocytes % % Eosinophils % % Basophils % % Neutrophils # (1.3-7.7) k/uL Lymphocytes # (1.0-4.8) k/uL Monocytes # (0-1.0) k/uL Eosinophils # (0-0.7) k/uL Basophils # (0-0.2) k/uL Sodium (137-145) mmol/L Potassium (3.5-5.1) mmol/L Chloride (98-107) mmol/L Carbon Dioxide (22-30) mmol/L Anion Gap mmol/L BUN (7-17) mg/dL Creatinine (0.52-1.04) mg/dL Est GFR (CKD-EPI)AfAm (>60 ml/min/1.73 sqM) Est GFR (CKD-EPI)NonAf (>60 ml/min/1.73 sqM) Glucose (74-99) mg/dL Calcium (8.4-10.2) mg/dL Total Bilirubin (0.2-1.3) mg/dL AST (14-36) U/L ALT (9-52) U/L Alkaline Phosphatase (38-126) U/L Total Protein (6.3-8.2) g/dL Albumin (3.5-5.0) g/dL Amylase (30-110) U/L Lipase (23-300) U/L Urine Color Urine Appearance (Clear) Urine pH (5.0-8.0) Ur Specific [place] (1.001-1.035) Urine Protein (Negative) Urine Glucose (UA) (Negative) Urine Ketones (Negative) Urine Blood (Negative) Urine Nitrite (Negative) Urine Bilirubin (Negative) Urine Urobilinogen (<2.0) mg/dL Ur Leukocyte Esterase (Negative) Urine RBC (0-5) /hpf Urine WBC (0-5) /hpf Ur Squamous Epith Cells (0-4) /hpf Urine Bacteria (None) /hpf Urine Mucus (None) /hpf Urine HCG, Qual Not Detected (Not Detectd) Disposition Clinical Impression: Abdominal pain Disposition: HOME SELF-CARE Condition: Good Instructions: Abdominal Pain (ED) Additional Instructions: Please use medication as discussed. Please follow-up with family doctor in the next 2 days of symptoms have not improved. Please return to emergency room if the symptoms increase or worsen or for any other concerns. Prescriptions: predniSONE 0 mg PO DIRECTED #16 tab Is patient prescribed a controlled substance at d/c from ED?: No Referrals: Jin Cota MD [REFERRING] - 1-2 days Sowmya Vee MD [STAFF PHYSICIAN] - 1-2 days Time of Disposition: 10:24
--- NOTE | 2018-06-01 09:46 | XR ---
EXAMINATION TYPE: XR KUB , 2 VIEWS DATE OF EXAM ORDERED: 06/01/2018 HISTORY: abdominal pain. COMPARISON: None. FINDINGS: The lung bases are clear. Within the abdomen, the gallbladder is been removed. The abdominal gas pattern is within normal limit s. There is no evidence of obstruction or free air. No unusual calcifications are seen. IMPRESSION: NO ACUTE INTRA-ABDOMINAL ABNORMALITY.
[2018-06-01 10:44] VITALS: BP 134/70; PULSE 78; RESP 16; TEMP 97.8
== END 2018-06-01 10:43 | disposition home or self-care (01) ==
LOC: EC 08:36 → SUPCPDRO 08:36 → EC 10:43
DX: R10.9 Unspecified abdominal pain (principal); R19.7 Diarrhea, unspecified; R11.0 Nausea; F17.200 Nicotine dependence, unspecified, uncomplicated; Z87.442 Personal history of urinary calculi; Z87.19 Personal history of other diseases of the digestive system; Z90.49 Acquired absence of other specified parts of digestive tract; Z79.891 Long term (current) use of opiate analgesic; Z88.8 Allergy status to other drugs, medicaments and biological substances
CPT/HCPCS: 36415; 74018; 80053; 81001; 81025; 82150; 83690; 85025; 99284